=== PATIENT | female | born 2005 | race Caucasian/White ===

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

== ENCOUNTER 2025-01-03 02:26 | Outpatient (CLI) | payer MEDICAID, SELFPAY ==
[2025-01-03 10:35] LABS: Absolute Basophil Count 0.01 10^3/uL (0.0-0.2); Absolute Eosinophil Count 0.42 10^3/uL (0.0-0.7); Absolute Lymphocyte Count 1.67 10^3/uL (1.2-3.4); Absolute Monocyte Count 0.44 10^3/uL (0.1-0.8); Absolute Neutrophil Count 3.33 10^3/uL (1.2-6.7); Basophils % 0.2 %; Eosinophils % 7.2 %; HGB 12.8 g/dL (11.2-15.7); Lymphocytes % 28.4 %; MCH 28.7 pg (27.0-33.0); MCHC 33.7 % (32.0-36.0); MCV 85 fL (80-95); MPV 9.7 fL (8.0-11.0); Monocytes % 7.5 %; Neutrophils % 56.7 %; Platelet Count 225 10^3/uL (130-400); RBC 4.46 10^6/uL (3.93-5.22); RDW 12.8 % (11.7-14.6); RDW-SD 39.2 fL; WBC 5.87 10^3/uL (4.4-10.8)
== END 2025-01-03 02:27 | disposition home or self-care (01) ==
LOC: LBO 02:26
PROVIDERS: PCP Nurse Practitioner Family; Visit Provider Nurse Practitioner Family
DX: D72.819 Decreased white blood cell count, unspecified (principal); D70.9 Neutropenia, unspecified
CPT/HCPCS: 36415; 85025

== ENCOUNTER 2025-05-12 20:48 | Emergency (ER) | payer MEDICAID, SELFPAY ==
[2025-05-12] VITALS (11 sets, daily range): BP systolic 111–127; BP diastolic 51–72; PULSE 81–108; RESP 16; TEMP 36.7; O2SAT 98–100
--- NOTE | 2025-05-12 21:01 | ED.GENADUL_ITS ---
Discharge Plan Disposition Patient Disposition: Home Condition: Improving Discharge Details Clinical Impression: Allergic reaction Primary Care Provider: Genesis Izaguirre ED Provider: Ty Skaggs Home Meds and New Rx's Prescriptions: New epinephrine [EpiPen 2-Hector] 0.3 mg/0.3 mL auto-injector 0.3 mg IM ONCE Qty: 2 0RF Rx Instructions: as a single dose; may repeat once No Action prochlorperazine maleate 5 mg tablet See Rx Instructions PO TID PRN (Reason: headache and/or nausea) Qty: 30 3RF Rx Instructions: 5-10 mg orally three times a day PRN; fluticasone propionate 110 mcg/actuation HFA aerosol inhaler 1 puff inhalation BID PRN (Reason: during winter) Qty: 12 2RF fluoxetine 20 mg capsule 20 mg PO DAILY Qty: 90 4RF Rx Instructions: to be taken with a 40 mg pill for a total daily dose of 60 mg fluoxetine 40 mg capsule 40 mg PO DAILY Qty: 90 4RF Rx Instructions: to be taken with a 20 mg pill every day for a total daily dose of 60 mg albuterol sulfate [ProAir HFA] 90 mcg/actuation HFA aerosol inhaler 2 puff Inhalation Q4H PRN Qty: 2 1RF Rx Instructions: 1 for home and 1 for school, use with spacer topiramate [Topamax] 100 mg tablet 100 mg PO QHS Qty: 90 3RF Discharge Instructions Instructions: Allergic Reaction ED Additional Instructions: Please follow-up with primary care. Please return to the Emergency Department for any worsening symptoms HPI General Date/Time Provider Initiated Documentation: 05/12/25 20:54 . HPI Narrative: 19-year-old female presents with sensation of swelling in her throat scratchiness in her throat and trouble breathing after eating pineapple. No prior reaction to pineapple in the past. Patient does have history of asthma Related Data Home Medications ?Medication ?Instructions ?Recorded ?Confirmed albuterol sulfate 90 mcg/actuation 2 puff inhalation Q 4H PRN ##2 10/05/23 05/12/25 aerosol inhaler (ProAir HFA) fluticasone propionate 110 1 puff inhalation BID PRN d uring 03/30/24 05/12/25 mcg/actuation HFA aerosol inhaler winter #12 grams topiramate 100 mg tablet (Topamax) 100 mg PO QHS #90 t abs 01/10/25 05/12/25 prochlorperazine maleate 5 mg See Rx Instructions PO T ID PRN 04/11/25 05/12/25 tablet headache and/or nausea #30 t abs fluoxetine 20 mg capsule 20 mg PO DAILY #90 caps 04/1105/12/25 fluoxetine 40 mg capsule 40 mg PO DAILY #90 caps 04/1105/12/25 epinephrine 0.3 mg/0.3 mL 0.3 mg (0.3 mL) IM ONCE #2 e a 05/12/25 injection, auto-injector (EpiPen 2-Hector) Previous Rx's ?Medication ?Instructions ?Recorded albuterol sulfate 90 mcg/actuation 2 puff inhalation Q 4H PRN ##2 10/05/23 aerosol inhaler (ProAir HFA) fluticasone propionate 110 1 puff inhalation BID PRN d uring 03/30/24 mcg/actuation HFA aerosol inhaler winter #12 grams topiramate 100 mg tablet (Topamax) 100 mg PO QHS #90 t abs 01/10/25 prochlorperazine maleate 5 mg See Rx Instructions PO T ID PRN 04/11/25 tablet headache and/or nausea #30 t abs fluoxetine 20 mg capsule 20 mg PO DAILY #90 caps 04/11 06/04 fluoxetine 40 mg capsule 40 mg PO DAILY #90 caps 04/11 06/04 epinephrine 0.3 mg/0.3 mL 0.3 mg (0.3 mL) IM ONCE #2 e a 05/12/25 injection, auto-injector (EpiPen 2-Hector) Allergies Allergy/AdvReac Type Severity Reaction Status Date / Time No Known Allergies Allergy Verified 05/12/25 20:58 General Stated Complaint: Allergic ARABELLA: 3 Exam Narrative Exam Narrative: General: alert, no acute distress HEENT: normocephalic, atraumatic, neck supple, pupils equal round reactive to light, moist mucous membranes, tolerating secretions, normal voice, no rhinorrhea or otorrhea Respiratory: Normal respiratory effort speaking full sentences, mild expiratory wheeze anterior lung field bilaterally Cardiac: regular rate and rhythm, no murmurs rubs or gallops; equal pulses bilaterally, warm well perfused Abdominal: soft, nontender, nondistended; no organomegaly or palpable masses MSK: normal range of motion of extremities, warm, well perfused Skin: warm, dry, no rashes or lesions Neuro: AAOx3, CN II-XII intact, 5/5 strength bilateral upper and lower extremities, normal speech, no ataxia Psych: normal mood, normal affect, calm, cooperative Course Vital Signs Vital signs: Vital Signs Temperature 36.7 C 05/12/25 20:51 Pulse 81 05/12/25 20:51 Respiratory Rate 16 05/12/25 20:51 Blood Pressure 127/72 05/12/25 20:51 Pulse Oximetry 100 05/12/25 20:51 Temperature 36.7 C 05/12/25 20:51 Temperature Source Temporal Artery Scan 05/12/25 20:51 Pulse 81 05/12/25 20:51 Respiratory Rate 16 05/12/25 20:51 Respiratory Effort Normal 05/12/25 20:56 Respiratory Pattern Normal 05/12/25 20:56 Blood Pressure 127/72 05/12/25 20:51 Pulse Oximetry 100 05/12/25 20:51 Oxygen Delivery Method Room Air 05/12/25 20:51 Oxygen Flow Rate 0 05/12/25 20:51 Pain Level 3 05/12/25 20:51 Medical Decision Making 19-year-old female presents after allergic reaction, was eating pineapple approximately 30 minutes ago when she noticed that her throat felt swollen and scratchy, feels as if her voice is slightly different and she is having some trouble breathing. No nausea no vomiting no presyncope no diarrhea hemodynamically stable afebrile nontoxic speaking full sentences tolerating secretions, bilateral expiratory wheeze, no respiratory distress however given upper respiratory symptomatology in setting of food exposure we will administer dexamethasone and epinephrine, patient cannot take Benadryl per her history given medication interaction. Consider allergic reaction versus early anaphylaxis. No evidence of angioedema at this time. Close reassessment symptomatology for disposition 22: 35 resting comfortably no acute distress. Feeling much better after medication. Hemodynamically stable. Asymptomatic. Patient would like to go home. PFSH All Active Problems (Updated 05/12/25 @ 22:36 by Ty Skaggs MD) Allergic reaction (Acute) Major depressive disorder (Chronic) Excessive sleepiness (Acute) Migraine headache without aura (Chronic) Chronic headache (Chronic) Abnormal uterine bleeding (AUB) (Chronic) Asthma (Chronic) Surgical History No pertinent past surgical history Family History Mother Acquired sensorineural hearing loss from tumor age 6 yrs old Hypertension Father No problems noted. Brother No problems noted. Brother No problems noted. Sister Asthma Maternal Grandmother Asthma Diabetes Maternal Grandfather , early 70s Heart disease Paternal Grandmother Asthma Paternal Grandfather No problems noted. Social History Smoking/Tobacco Use Status: Never Smoking risk assessment performed?: Yes Alcohol Intake: never Counseling given: No Drug use: Never Substance use type: does not use Adopted: No Household members: family and other Details: parents Housing: house Education Level: high school Pets and animals: Yes Pets and animals: dog(s) Sexually active: No Do you think of yourself as: bisexual Current gender identity: female What is your relationship status?: never How often do you talk on the phone with friends or family?: three or more times per week How often do you get together with friends or relatives?: three or more times per week How often do you attend mandaeism or baptism services?: decline to answer Do you belong to any clubs or organized social groups?: no Panel score (0-1 are the most socially isolated patients): 1 What type of physical activity do you participate in: walking Duration: < 15 minutes/day Frequency: daily Valeria/Mosque: Non orthodox Special valeria needs: No Seatbelt use: always Helmet use: Yes Helmet use: always Drive intox or ride w/intox charter and tour bus driver: No Working smoke detector in home: Yes Carbon monox detector in home: Yes Firearms in home: No Do you feel safe at home: Yes Do you feel safe in your relationship?: Yes Victim of physical abuse: No Victim of emotional abuse: No Victim of sexual abuse: No Would you like helpful sources: No Additional Social history: Mother works in data visualization developer. Bio father not involved.
[2025-05-12] MEDS: Dexamethasone 10 MG/ML VIAL PO (21:15)
[2025-05-12] MEDS: EPINEPHrine 0.3 MG KIT IM (21:15)
[2025-05-12] MEDS: Albuterol 2.5 MG/3 ML INH SOLN VIAL UPD (21:15)
== END 2025-05-12 22:47 | disposition home or self-care (01) ==
PROVIDERS: Emergency Provider Emergency Medicine; PCP Nurse Practitioner Family
DX: R60.9 Edema, unspecified (principal); T78.1XXA Other adverse food reactions, not elsewhere classified, initial encounter
CPT/HCPCS: 94640; 99283; J0165; J1100; J7613

== ENCOUNTER 2025-07-06 03:55 | Outpatient (CLI) | payer MEDICAID, SELFPAY ==
--- NOTE | 2025-07-06 06:15 | DI.MRI_ITS ---
Exam(s) MR BRAIN WO EXAM: MR BRAIN WO CLINICAL HISTORY: memory deficit, migraines,r41.3,g43.009 TECHNIQUE: Multiplanar multisequence MRI of the brain was performed. COMPARISON: CT CT HEAD WO from 10/24/2024 FINDINGS: VENTRICLES AND EXTRA AXIAL SPACES: Normal in size and morphology for the patient's age. MIDLINE SHIFT: None. CEREBRAL PARENCHYMA: No focus of restricted diffusion to suggest acute infarct. No space-occupying lesion identified. HEMORRHAGE: None. BRAINSTEM/CEREBELLUM: Normal. CALVARIUM: Normal. VISUALIZED PARANASAL SINUSES/MASTOIDS:Clear. CONFEDERATED SALISH OF ARREGUIN: Normal flow void. PITUITARY GLAND: Unremarkable. OTHER FINDINGS: None. IMPRESSION: Unremarkable MRI of the brain. DATA REPOSITORY:
== END 2025-07-06 04:15 ==
LOC: DI 03:55
PROVIDERS: PCP Nurse Practitioner Family; Visit Provider Nurse Practitioner Adult Health
DX: R41.3 Other amnesia (principal); G43.009 Migraine without aura, not intractable, without status migrainosus
CPT/HCPCS: 70551

== ENCOUNTER 2025-07-30 18:39 | Emergency (ER) | payer OTHER, SELFPAY ==
[2025-07-30 18:40] VITALS: PULSE 71; RESP 18; TEMP 36.1; O2SAT 98
--- NOTE | 2025-07-30 18:45 | DI.RAD_ITS ---
Exam(s) XR WRIST RT COMPLETE EXAM: XR WRIST RT COMPLETE CLINICAL HISTORY: wrist sprain. TECHNIQUE: 2D digital imaging was performed of the right wrist. Three views were obtained. PA, lateral and oblique views were obtained. COMPARISON: No exams were available for comparison FINDINGS: BONES: No acute fracture is present. No bony destructive lesion is seen. JOINTS: The carpal bones are normally aligned. SOFT TISSUE: Normal. IMPRESSION: 1. Unremarkable radiographs of the right wrist. 2. The preliminary [facility] report was reviewed. DATA REPOSITORY: RADIATION DOSE DELIVERED:
--- NOTE | 2025-07-30 19:28 | ED.GENADUL_ITS ---
Discharge Plan Disposition Patient Disposition: Home Condition: Stable Discharge Details Clinical Impression: Right wrist sprain Primary Care Provider: Genesis Izaguirre ED Provider: Lillian Jacobson Home Meds and New Rx's Prescriptions: No Action fluticasone propionate 110 mcg/actuation HFA aerosol inhaler 1 puff inhalation BID PRN (Reason: during winter) Qty: 12 2RF fluoxetine 20 mg capsule 20 mg PO DAILY Qty: 90 4RF Rx Instructions: to be taken with a 40 mg pill for a total daily dose of 60 mg fluoxetine 40 mg capsule 40 mg PO DAILY Qty: 90 4RF Rx Instructions: to be taken with a 20 mg pill every day for a total daily dose of 60 mg topiramate [Topamax] 100 mg tablet 100 mg PO QHS Qty: 90 4RF prochlorperazine maleate 5 mg tablet See Rx Instructions PO TID PRN (Reason: headache and/or nausea) Qty: 30 3RF Rx Instructions: 5-10 mg orally three times a day PRN; albuterol sulfate [ProAir HFA] 90 mcg/actuation HFA aerosol inhaler 2 puff Inhalation Q4H PRN Qty: 2 1RF Rx Instructions: 1 for home and 1 for school, use with spacer epinephrine [EpiPen 2-Hector] 0.3 mg/0.3 mL auto-injector 0.3 mg IM ONCE Qty: 2 0RF Rx Instructions: as a single dose; may repeat once Discharge Instructions Instructions: Wrist Sprain ED Additional Instructions: You were seen in the emergency department today for evaluation after a hyperextension injury of your right wrist, concerning for sprain. In our department a full physical examination performed, you had x-ray imaging that was reviewed by myself and does not show any obvious displaced fracture or other concerning abnormalities. Your x-rays will be reviewed by our radiology team and I will contact you by phone if there are any changes to their read. I have provided you with a splint which you could use as needed for comfort and support. It is safe for you to continue to move your wrist and arm at this time, and you can use ice and elevation for swelling. Please use therapeutic dosing of Tylenol (acetaminophen) & Advil (ibuprofen) in an alternating fashion as follows: Take 1000mg of Tylenol every 6 hours without missing doses- that is 4 times per day. [place] in between the Tylenol doses, take 600mg of Advil also on a 6 hour schedule, that is also 4 times per day. With this strategy, you will be taking something for fever/pain as often as every 3 hours. The daily maximum dosing of Tylenol is 4000mg, and the daily maximum dosing of Advil is 2400mg. Please note that some common cold medications & prescription pain medications may contain acetaminophen and you need to read OTC drug labels and factor that in to maximum daily doses. Please follow-up with your primary care provider in the next few days to discuss this visit and any symptoms that change, worsen, or persist. Thank you for allo wing us to be part of your care. HPI General Mode of arrival: ambulatory . Date/Time Provider Initiated Documentation: 07/30/25 18:42 . Limitations to Documentation: no limitations . Information obtained by: patient, family and old records reviewed . HPI Narrative: This is a 20-year-old female patient with a history of migraines, depression, presenting for evaluation of a right wrist injury. The patient was working at her job and lifting a heavy box with her right hand, and states that her right wrist was bent backwards at a severe angle. She did not hear a pop, but has had some pain over the dorsal aspect of the right wrist right in the center. No overlying skin changes were noted, she has not taken any medications for management of pain. Prior to this event she was in her normal state of health and this is an isolated injury. She has no numbness, tingling, or weakness distal to this injury. Related Data Home Medications ?Medication ?Instructions ?Recorded ?Confirmed albuterol sulfate 90 mcg/actuation 2 puff inhalation Q 4H PRN ##2 10/05/23 07/30/25 aerosol inhaler (ProAir HFA) fluticasone propionate 110 1 puff inhalation BID PRN d uring 03/30/24 07/30/25 mcg/actuation HFA aerosol inhaler winter #12 grams fluoxetine 20 mg capsule 20 mg PO DAILY #90 caps 04/1107/30/25 fluoxetine 40 mg capsule 40 mg PO DAILY #90 caps 04/1107/30/25 epinephrine 0.3 mg/0.3 mL 0.3 mg (0.3 mL) IM ONCE #2 e a 05/12/25 07/30/25 injection, auto-injector (EpiPen 2-Hector) prochlorperazine maleate 5 mg See Rx Instructions PO T ID PRN 07/19/25 07/30/25 tablet headache and/or nausea #30 t abs topiramate 100 mg tablet (Topamax) 100 mg PO QHS #90 t abs 07/19/25 07/30/25 Previous Rx's ?Medication ?Instructions ?Recorded albuterol sulfate 90 mcg/actuation 2 puff inhalation Q 4H PRN ##2 10/05/23 aerosol inhaler (ProAir HFA) fluticasone propionate 110 1 puff inhalation BID PRN d uring 03/30/24 mcg/actuation HFA aerosol inhaler winter #12 grams fluoxetine 20 mg capsule 20 mg PO DAILY #90 caps 04/11 06/04 fluoxetine 40 mg capsule 40 mg PO DAILY #90 caps 04/11 06/04 epinephrine 0.3 mg/0.3 mL 0.3 mg (0.3 mL) IM ONCE #2 e a 05/12/25 injection, auto-injector (EpiPen 2-Hector) prochlorperazine maleate 5 mg See Rx Instructions PO T ID PRN 07/19/25 tablet headache and/or nausea #30 t abs topiramate 100 mg tablet (Topamax) 100 mg PO QHS #90 t abs 07/19/25 Allergies Allergy/AdvReac Type Severity Reaction Status Date / Time No Known Allergies Allergy Verified 07/30/25 18:43 General Stated Complaint: Orthopedic ARABELLA: 4 Exam Narrative Exam Narrative: Gen: Awake and alert, in no apparent distress HEENT: Non-icteric sclera Neck: Supple Lungs: No apparent respiratory distress, normal respiratory effort. CV: Appears well perfused Abdomen: Non-distended MSK: Moves 4 extremities without apparent limitation in ROM, including the right wrist. The patient has full resisted flexion and extension as well as radial and ulnar deviation. She has no neurodeficits distal to the right wrist, brisk capillary refill in no pain over the anatomical snuffbox on the affected right side. She has some very mild tenderness of the dorsal aspect of the right wrist just proximal to the hand, with no overlying skin changes, swelling, deformity Skin: Visualized skin without rashes, cyanosis. Neuro: Normal Gait, no obvious focal deficits or facial asymmetry. Speaks in full, clear sentences. Psych: Appropriate for situation. Course Vital Signs Vital signs: Vital Signs Temperature 36.1 C L 07/30/25 18:40 Pulse 71 07/30/25 18:40 Respiratory Rate 18 07/30/25 18:40 Pulse Oximetry 98 07/30/25 18:40 Temperature 36.1 C L 07/30/25 18:40 Pulse 71 07/30/25 18:40 Respiratory Rate 18 07/30/25 18:40 Pulse Oximetry 98 07/30/25 18:40 Pain Level 5 07/30/25 18:58 Medical Decision Making This is a 20-year-old female patient presenting for evaluation of a wrist injury. Differential includes but is not limited to sprain/strain, fracture, dislocation, no evidence for neurovascular derangement, considered contusion. The patient declines medications for pain or swelling but I did provide her with an ice pack. We obtained an x-ray which I independently interpreted, which shows no osseous abnormalities. I am most concerned for sprain, the patient does not have anatomical snuffbox tenderness to increase my concern for occult scaphoid fracture. I placed her in a universal wrist splint for support, and counseled her on conservative management. At this time, the patient has had a full medical evaluation and is safe for discharge to home. They are hemodynamically stable, ambulatory, and tolerating PO. They are understanding of the follow-up plan and return precautions. They left our facility without incident. Lillian Jacobson MD [facility] All Active Problems (Updated 07/30/25 @ 19:29 by Lillian Jacobson MD) Right wrist sprain (Acute) Memory deficit (Acute) Major depressive disorder (Chronic) Excessive sleepiness (Acute) Migraine headache without aura (Chronic) Chronic headache (Chronic) Abnormal uterine bleeding (AUB) (Chronic) Asthma (Chronic) Surgical History No pertinent past surgical history Family History Mother Acquired sensorineural hearing loss from tumor age 6 yrs old Hypertension Father No problems noted. Brother No problems noted. Brother No problems noted. Sister Asthma Maternal Grandmother Asthma Diabetes Maternal Grandfather , early 70s Heart disease Paternal Grandmother Asthma Paternal Grandfather No problems noted. Social History Smoking/Tobacco Use Status: Never Smoking risk assessment performed?: Yes Alcohol Intake: never Counseling given: No Drug use: Never Substance use type: does not use Adopted: No Household members: family and other Details: parents Housing: house Education Level: high school Details: [employer] Pets and animals: Yes Pets and animals: dog(s) Sexually active: No Do you think of yourself as: bisexual Current gender identity: female What is your relationship status?: never How often do you talk on the phone with friends or family?: three or more times per week How often do you get together with friends or relatives?: three or more times per week How often do you attend gnosticism or catholic services?: decline to answer Do you belong to any clubs or organized social groups?: no Panel score (0-1 are the most socially isolated patients): 1 What type of physical activity do you participate in: walking Duration: < 15 minutes/day Frequency: daily Valeria/Congregational: Non cheondoism Special valeria needs: No Seatbelt use: always Helmet use: Yes Helmet use: always Drive intox or ride w/intox star route mail driver: No Working smoke detector in home: Yes Carbon monox detector in home: Yes Firearms in home: No Do you feel safe at home: Yes Do you feel safe in your relationship?: Yes Victim of physical abuse: No Victim of emotional abuse: No Victim of sexual abuse: No Would you like helpful sources: No Additional Social history: Mother works in software database architect. Bio father not involved.
--- NOTE | 2025-07-30 21:04 | DI.[facility]_ITS ---
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 Views: 3 or more views. COMPARISON: No relevant prior studies available. FINDINGS: Bones/joints: Normal. Soft tissues: Normal. IMPRESSION: No acute findings. Dictated and Authenticated by: Rick Baptiste MD. Orderin [facility] Wesley Snyder MD
--- NOTE | 2025-07-31 14:42 | NUR.NOTE ---
Access chart to print the demographic sheet for [facility] billing requisition. Nursing Note:
== END 2025-07-30 19:40 | disposition home or self-care (01) ==
PROVIDERS: Emergency Provider Emergency Medicine; PCP Nurse Practitioner Family
DX: S63.501A Unspecified sprain of right wrist, initial encounter (principal); X50.0XXA Overexertion from strenuous movement or load, initial encounter; Y99.0 Civilian activity done for income or pay
CPT/HCPCS: 99283 ×2; 29125; 73110

== ENCOUNTER → 2025-09-03 02:19 | Outpatient (CLI) | payer MEDICAID, SELFPAY ==
--- NOTE | 2025-09-03 08:00 | DI.MRI_ITS ---
Exam(s) MR UPPER JOINT RT WO EXAM: MR UPPER JOINT RT WO CLINICAL HISTORY: Right wrist sprain/pain,S63.501A. TECHNIQUE: Multiplanar multisequence MRI was performed. COMPARISON: Plain films 30 July 2025 FINDINGS: The exam is limited by motion. BONES: There is no fracture or contusion pattern. JOINTS: The radiocarpal joint is unremarkable. The carpal joints are unremarkable. TENDONS: Flexors: Unremarkable. Extensors: Unremarkable. MUSCLES: Unremarkable. Carpal tunnel: The median nerve is unremarkable on this noncontrast examination. No abnormal signal within the carpal tunnel. SOFT TISSUES: Unremarkable. LIGAMENTS: Unremarkable. TRIANGULAR FIBROCARTILAGE: Unremarkable. IMPRESSION: Unremarkable MRI of the right wrist. DATA REPOSITORY:
== END ==
LOC: DI 02:19
PROVIDERS: PCP Nurse Practitioner Family; Visit Provider Nurse Practitioner Family
DX: S63.501A Unspecified sprain of right wrist, initial encounter (principal); X58.XXXA Exposure to other specified factors, initial encounter
CPT/HCPCS: 73221

== ENCOUNTER 2025-09-11 08:35 | Emergency (ER) | payer MEDICAID, SELFPAY ==
[2025-09-11 08:52] VITALS: BP 117/76; PULSE 83; RESP 16; TEMP 36.9; O2SAT 98
[2025-09-11 10:52] LABS: Abs Immature Grans 0.04 10^3/uL (0.0-0.06); HCT 39.5 % (36.0-46.0); HGB 12.9 g/dL (11.2-15.7); Immature Grans % 0.4 %; MCH 29.0 pg (27.0-33.0); MCHC 32.7 % (32.0-36.0); MCV 89 fL (80-95); MPV 9.9 fL (8.0-11.0); Platelet Count 231 10^3/uL (130-400); RBC 4.45 10^6/uL (3.93-5.22); RDW 12.3 % (11.7-14.6); RDW-SD 40.0 fL; WBC 9.61 10^3/uL (4.4-10.8)
[2025-09-11 11:22] LABS: ALT 10 U/L (10-49); AST 18 U/L (<34); Albumin 4.8 g/dL (3.2-5.0); Alkaline Phosphatase 67 U/L (46-116); Anion Gap 9.4 mmol/L (3-11); BUN 7 mg/dL (9-23); Bilirubin, Total 0.30 mg/dL (0.2-1.2); CO2 23.6 mmol/L (20.0-31.0); Calcium 9.4 mg/dL (8.3-10.6); Chloride 108 mmol/L (98-107); Glucose 94 mg/dL (74-106); Potassium 3.7 mmol/L (3.5-5.1); Sodium 141 mmol/L (136-145); Total Protein 7.9 g/dL (5.7-8.2)
[2025-09-11 11:36] LABS: HCG Qual (Serum) Negative
[2025-09-11] MEDS: Ondansetron O.D.T. 4 MG TABEF, 3 TABS/BTL PO (13:17)
[2025-09-11] MEDS: Doxycycline Hyclate 100 MG, 2 CAPS/BTL PO (13:18)
[2025-09-11] MEDS: metroNIDAZOLE 500 MG TAB, 3 TABS/BTL PO (13:19)
[2025-09-11] MEDS: cefTRIAXone 500 MG VIAL IM (13:20)
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
[2025-09-11 21:39] LABS: HBs Antibody, Quant <3.1 mIU/mL (See Note); Hepatitis B Surface Ab Negative (See Note)
[2025-09-11 22:26] LABS: Hepatitis C Ab w Rflx HCV PCR Negative (Negative)
[2025-09-11 22:30] LABS: Hep B Core Antibody Negative (Negative)
[2025-09-12 11:23] LABS: Syphilis Serology (RPR) Negative (Negative)
--- NOTE | 2025-09-13 08:27 | W.ED.FU ---
Follow Up Plan: Patient does not have a positive surface antibody to hepatitis B and will need to complete another vaccine series. She was called at 8:30 AM 13 September and a voicemail message left pending return call
[2025-09-13 09:37] LABS: Lab Add On Test DONE
[2025-09-13 12:16] LABS: Chlamydia Result Negative (Negative); GC Result Negative (Negative)
[2025-09-13 19:11] LABS: HIV-1/2 Ag & Ab Screen Negative (Negative)
== END 2025-09-11 14:15 | disposition home or self-care (01) ==
PROVIDERS: Emergency Provider Physician Assistant; PCP Nurse Practitioner Family
DX: T74.21XA Adult sexual abuse, confirmed, initial encounter (principal); Y07.490 Male cousin, perpetrator of maltreatment and neglect
CPT/HCPCS: 36415; 80053; 81025; 86704; 86706; 86803; 87340; 87389; 87491; 87591; 96372; 99284; 84703; 85025; 86592; 87480; 87510; 87660; 99283; J0696; J2003

== ENCOUNTER 2025-10-08 11:55 | Outpatient (CLI) | payer MEDICAID, SELFPAY ==
[2025-10-09 09:52] LABS: HIV-1/2 Ag & Ab Screen Negative (Negative)
== END 2025-10-08 11:56 | disposition home or self-care (01) ==
LOC: LBO 11:56
PROVIDERS: PCP Nurse Practitioner Family; Visit Provider Nurse Practitioner Family
DX: T74.21XA Adult sexual abuse, confirmed, initial encounter (principal)
CPT/HCPCS: 36415; 87389